=== PATIENT | female | born 1965 | race Caucasian/White ===

== ENCOUNTER → 2020-08-03 | Day surgery (SDC) | payer OTHER ==
[~2020-08-03] VITALS: Ht 165.1 cm; Wt 78.9 kg
[~2020-08-03] MED LIST: AMLODIPINE BESYL5 MG PO; BENZONATATE100 MG PO; BETAPACE 80MG T80 MG PO; BUTALB-ACETAMI1 EACH PO; CLOPIDOGREL75 MG PO; COREG 25MG TAB25 MG PO; CRESTOR40 MG PO; DEMADEX 10 MG T10 MG PO; FLUOXETINE HCL40 MG PO; GLUCOPHAGE 500500 MG PO; HUMALOG 10100 UNITS/ SC; HYDROCODON-ACE1 EAC2 PO; K-TAB ER10 MEQ PO; KLONOPIN TAB 00.5 MG PO; LASIX20 MG PO; PROTONIX 40 MG40 M1 PO; ROPINIROLE HCL2 MG PO; TELMISARTAN80 MG PO; TOPAMAX 25 MG T25 MG PO; TRAMADOL HCL50 MG PO
== END | disposition home or self-care (01) ==
LOC: OR 07:25
DX: K29.50 Unspecified chronic gastritis without bleeding (principal); K22.2 Esophageal obstruction; K44.9 Diaphragmatic hernia without obstruction or gangrene; K64.0 First degree hemorrhoids; D64.9 Anemia, unspecified; I10 Essential (primary) hypertension; K21.9 Gastro-esophageal reflux disease without esophagitis; E11.43 Type 2 diabetes mellitus with diabetic autonomic (poly)neuropathy; K31.84 Gastroparesis; E78.00 Pure hypercholesterolemia, unspecified; G25.81 Restless legs syndrome; E66.9 Obesity, unspecified; Z95.810 Presence of automatic (implantable) cardiac defibrillator; Z68.30 Body mass index [BMI] 30.0-30.9, adult; Z88.2 Allergy status to sulfonamides; Z88.1 Allergy status to other antibiotic agents; Z88.8 Allergy status to other drugs, medicaments and biological substances; Z79.02 Long term (current) use of antithrombotics/antiplatelets; Z79.4 Long term (current) use of insulin; Z79.899 Other long term (current) drug therapy
CPT/HCPCS: J2704; J7040

== ENCOUNTER 2021-05-13 15:41 | Emergency (ER) | payer OTHER ==
[~2021-05-13] VITALS: Ht 165.1 cm; Wt 92.1 kg
== END 2021-05-13 20:50 | disposition home or self-care (01) ==
LOC: ER1 15:41
DX: U07.1 COVID-19 (principal); Z23 Encounter for immunization; E11.9 Type 2 diabetes mellitus without complications; I11.9 Hypertensive heart disease without heart failure; I25.10 Atherosclerotic heart disease of native coronary artery without angina pectoris; Z88.2 Allergy status to sulfonamides; Z95.2 Presence of prosthetic heart valve
CPT/HCPCS: 99283; M0245

== ENCOUNTER → 2021-10-25 | Outpatient (CLI) | payer BC | LOC: KOH-I 13:38 | DX: S92.412A Displaced fracture of proximal phalanx of left great toe, initial encounter for closed fracture (principal) | CPT/HCPCS: 73630 ==

== ENCOUNTER → 2021-11-24 | Outpatient (CLI) | payer BC | LOC: KOH-I 16:00 | DX: S92.412D Displaced fracture of proximal phalanx of left great toe, subsequent encounter for fracture with routine healing (principal); X58.XXXD Exposure to other specified factors, subsequent encounter | CPT/HCPCS: 73630 ==